=== PATIENT | male | born 1955 | race Caucasian/White ===

== ENCOUNTER 2018-01-18 09:38 | Emergency (ER) | payer SELFPAY ==
[~2018-01-18] VITALS: Ht 165.1 cm; Wt 67.0 kg
[2018-01-18] MEDS ORDERED: KETOROLAC 60MG/2ML VIAL IM ONE (10:15)
[2018-01-18 12:17] VITALS: BP 163/83
== END 2018-01-18 12:19 | disposition home or self-care (01) ==
LOC: ER 09:38
DX: S80.811A Abrasion, right lower leg, initial encounter (principal); V18.4XXA Pedal cycle driver injured in noncollision transport accident in traffic accident, initial encounter; Y93.55 Activity, bike riding; Y92.89 Other specified places as the place of occurrence of the external cause; I10 Essential (primary) hypertension
CPT/HCPCS: 73502; 73552; 73562; 73590; 73630; 96372; 99284; J1885

== ENCOUNTER 2018-09-24 10:00 | Emergency (ER) | payer SELFPAY ==
[~2018-09-24] VITALS: Ht 160 cm; Wt 80.0 kg
[2018-09-24 15:36] LABS: HEMATOCRIT. 37.3 % (42.0-52.0); HEMOGLOBIN. 12.7 g/dL (14.0-18.0); MEAN CORPUSCULAR HEMOGLOBIN 32.2 pg (28.0-32.0); MEAN CORPUSCULAR VOLUME 94.6 fL (80.0-94.0); MEAN PLATELET VOLUME 9.1 fl (7.4-10.4); PLATELET 191 x1000/uL (130-400); RED BLOOD CELL COUNT 3.94 mill/uL (4.7-6.1); RED CELL DISTRIBUTION WIDTH 16.9 % (11.6-14.6)
[2018-09-24 15:37] LABS: CHLORIDE 98 mEq/L (98-107); PROTHROMBIN TIME 10.4 sec (9.6-11.0)
[2018-09-24 16:05] LABS: PLATELET ESTIMATE NORMAL
[2018-09-24] MEDS ORDERED: ACETAMINOPHEN 325MG TABLET PO ONE (21:00)
[2018-09-25 12:47] VITALS: BP 131/76
== END 2018-09-25 12:45 | disposition home or self-care (01) ==
LOC: ER 10:00
DX: S71.102A Unspecified open wound, left thigh, initial encounter (principal); S71.101A Unspecified open wound, right thigh, initial encounter; F10.10 Alcohol abuse, uncomplicated; Y90.9 Presence of alcohol in blood, level not specified; Z59.0 Homelessness; X58.XXXA Exposure to other specified factors, initial encounter; Y93.89 Activity, other specified; Y92.89 Other specified places as the place of occurrence of the external cause
CPT/HCPCS: 36415; 71045; 80053; 83880; 85025; 85610; 93005; 99284; Z7610

== ENCOUNTER 2019-09-13 13:20 | Inpatient (IN) | payer MEDICAID, OTHER ==
[~2019-09-13] VITALS: Ht 162.6 cm; Wt 82.2 kg
[2019-09-13 04:00] VITALS: BP 148/80
[2019-09-13] MEDS ORDERED: SODIUM CHLORIDE 0.9% 1,000 ML IV ONE ×2 (14:35→17:03)
[2019-09-13] MEDS ORDERED: ACETAMINOPHEN 325MG TABLET PO STA (14:35)
[2019-09-13] MEDS ORDERED: VANCOMYCIN 1 G PREMIX 200 ML IV ONE (14:45)
[2019-09-13] MEDS ORDERED: CEFTRIAXONE 1 G PREMIX 50 ML IV ONE (14:45)
[2019-09-13 16:27] LABS: EOSINOPHILS % 0.8 % (0.0-5.0); HEMATOCRIT. 36.2 % (42.0-52.0); HEMOGLOBIN. 12.3 g/dL (14.0-18.0); LYMPHOCYTES % 19.1 % (20.0-50.0); MEAN CORPUSCULAR HEMOGLOBIN 31.5 pg (28.0-32.0); MEAN CORPUSCULAR VOLUME 92.7 fL (80.0-94.0); MEAN PLATELET VOLUME 8.8 fl (7.4-10.4); MONOCYTES % 12.6 % (2.0-8.0); NEUTROPHILS % 66.5 % (40.0-76.0); PLATELET 238 x1000/uL (130-400); RED CELL DISTRIBUTION WIDTH 15.2 % (11.6-14.6)
[2019-09-13 16:31] LABS: CHLORIDE 101 mEq/L (98-107)
[2019-09-13 16:34] LABS: INR 0.9; PROTHROMBIN TIME 10.1 sec (9.6-11.0)
[2019-09-13 16:36] LABS: ETHANOL BLOOD 11 mg/dL
[2019-09-13] MEDS ORDERED: POTASSIUM CHLORIDE 20MEQ TABLET SR PO ONE (16:45)
[2019-09-13] MEDS ORDERED: MORPHINE SULFATE 4 MG/ML CPJ (NOT FOR IM USE) IV STA (17:03)
[2019-09-13] MEDS ORDERED: CLINDAMYCIN 600 MG in DEXTROSE 5% WATER 50 ML IV ONE (17:30)
[2019-09-13 17:46] LABS: *AMPHETAMINES SCREEN URINE NEGATIVE (NEGATIVE); *BARBITURATES SCREEN URINE NEGATIVE (NEGATIVE); *BENZODIAZEPINES SCREEN URINE NEGATIVE (NEGATIVE); *COCAINE SCREEN URINE NEGATIVE (NEGATIVE); CANNABINOID URINE SCREEN NEGATIVE (NEGATIVE); METHADONE URINE SCREEN NEGATIVE (NEGATIVE); OPIATES URINE SCREEN NEGATIVE (NEGATIVE); PHENCYCLIDINE URINE SCREEN NEGATIVE (NEGATIVE)
[2019-09-13] MEDS ORDERED: DOCUSATE SODIUM 100MG CAPSULE PO PRN (18:00)
[2019-09-13] MEDS ORDERED: LORAZEPAM 2MG/ML CPJ IV PRN (18:00)
[2019-09-13] MEDS ORDERED: DEXTROSE 50% WATER 50ML SYRINGE IV PRN (18:00)
[2019-09-13] MEDS ORDERED: HYDRALAZINE 20MG/ML VIAL IV PRN (18:00)
[2019-09-13] MEDS ORDERED: DIPHENHYDRAMINE 50MG/ML VIAL IV PRN (18:00)
[2019-09-13] MEDS ORDERED: IPRATROPIUM/ALBUTEROL 0.5-3(2.5)MG/3ML NEB NEB PRN (18:00)
[2019-09-13] MEDS ORDERED: PIPERACILLIN/TAZ 3.375G PREMIX 50 ML IV SCH (18:00)
[2019-09-13] MEDS ORDERED: NA PHOS,M-B/NA PHOS,DI-BA ENEMA 118ML PR PRN (18:00)
[2019-09-13] MEDS ORDERED: CLINDAMYCIN 600MG PREMIX 50 ML IV SCH (18:00)
[2019-09-13] MEDS ORDERED: MAGNESIUM/ALUMINUM HYDROXIDE/SIMETHICONE 30ML UDC PO PRN (18:00)
[2019-09-13] MEDS ORDERED: GUAIFENESIN 200MG/10ML SUGAR FREE UDC PO PRN (18:00)
[2019-09-13] MEDS ORDERED: ONDANSETRON HCL 4MG/2ML INJ IV PRN (18:00)
[2019-09-13 22:00] VITALS: BP 161/91
[2019-09-13] MEDS: MORPHINE SULFATE 2 MG/ML CPJ (NOT FOR IM USE) IV PRN (22:10)
[2019-09-13] MEDS: CLONIDINE 0.1MG TABLET PO PRN (22:11)
[2019-09-14] VITALS: BP 133/76
[2019-09-14 00:32] LABS: CREATINE KINASE 226 IU/L (39-308)
[2019-09-14 00:33] LABS: CREATINE KINASE MB FRACTION < 1.0 ng/mL (0.5-3.6)
[2019-09-14] MEDS: SODIUM CHLORIDE 0.45% 1,000 ML IV SCH ×2 (00:36→17:01)
[2019-09-14] MEDS: VANCOMYCIN 1 G PREMIX 200 ML IV SCH ×2 (01:09→13:48)
[2019-09-14 04:00] VITALS: BP 161/63
[2019-09-14] MEDS: PIPERACILLIN/TAZOBACTAM 3.375 G in DEXT 5% WATER 100 ML IV SCH ×3 (05:58→23:12)
[2019-09-14] MEDS: SODIUM CHLORIDE 0.9% INJ 3ML FLUSH IVF SCH ×3 (06:00→23:12)
[2019-09-14] MEDS: INSULIN LISPRO 100 UNITS/ML SUBCUT SCH ×4 (06:02→21:00)
[2019-09-14] MEDS: BLOOD SUGAR DIAGNOSTIC STRIP TEST SCH ×4 (06:02→21:01)
[2019-09-14 07:11] LABS: BASOPHILS % 0.4 % (0.0-2.0); EOSINOPHILS % 1.6 % (0.0-5.0); HEMATOCRIT. 30.9 % (42.0-52.0); HEMOGLOBIN. 10.7 g/dL (14.0-18.0); LYMPHOCYTES % 18.6 % (20.0-50.0); MEAN CORPUSCULAR VOLUME 92.8 fL (80.0-94.0); MEAN PLATELET VOLUME 8.6 fl (7.4-10.4); MONOCYTES % 14.4 % (2.0-8.0); PLATELET 203 x1000/uL (130-400); RED BLOOD CELL COUNT 3.33 mill/uL (4.7-6.1); RED CELL DISTRIBUTION WIDTH 15.2 % (11.6-14.6)
[2019-09-14 07:25] LABS: CHLORIDE 104 mEq/L (98-107)
[2019-09-14 07:40] LABS: CREATINE KINASE 166 IU/L (39-308)
[2019-09-14 07:41] LABS: CREATINE KINASE MB FRACTION < 1.0 ng/mL (0.5-3.6)
[2019-09-14 08:00] VITALS: BP 143/67
[2019-09-14] MEDS: ENOXAPARIN 40MG/0.4ML SYR SUBCUT SCH (09:34)
[2019-09-14] MEDS: HYDROCODONE/ACETAMINOPHEN 10/325MG TABLET PO PRN ×2 (10:07→21:06)
[2019-09-14 12:00] VITALS: BP 160/86
[2019-09-14 16:00] VITALS: BP 149/88
[2019-09-14] MEDS: LEVOFLOXACIN 500MG PREMIX 100 ML IV SCH (17:01)
[2019-09-14] MEDS: MORPHINE SULFATE 2 MG/ML CPJ (NOT FOR IM USE) IV PRN (18:09)
[2019-09-14 20:00] VITALS: BP 153/78
[2019-09-15] VITALS: BP 169/88
[2019-09-15] MEDS: VANCOMYCIN 1 G PREMIX 200 ML IV SCH ×2 (01:42→12:56)
[2019-09-15] MEDS: CLONIDINE 0.1MG TABLET PO PRN ×2 (01:52→13:06)
[2019-09-15] MEDS: MORPHINE SULFATE 2 MG/ML CPJ (NOT FOR IM USE) IV PRN ×4 (01:52→21:38)
[2019-09-15 04:00] VITALS: BP 143/90
[2019-09-15] MEDS: BLOOD SUGAR DIAGNOSTIC STRIP TEST SCH ×4 (06:24→20:23)
[2019-09-15] MEDS: INSULIN LISPRO 100 UNITS/ML SUBCUT SCH ×4 (06:24→20:23)
[2019-09-15] MEDS: PIPERACILLIN/TAZOBACTAM 3.375 G in DEXT 5% WATER 100 ML IV SCH ×3 (06:38→23:30)
[2019-09-15] MEDS: SODIUM CHLORIDE 0.9% INJ 3ML FLUSH IVF SCH ×3 (06:39→21:38)
[2019-09-15] MEDS: HYDROCODONE/ACETAMINOPHEN 10/325MG TABLET PO PRN ×3 (06:39→17:32)
[2019-09-15 08:02] VITALS: BP 159/93
[2019-09-15] MEDS: ACETAMINOPHEN 325MG TABLET PO PRN (08:23)
[2019-09-15] MEDS: ENOXAPARIN 40MG/0.4ML SYR SUBCUT SCH (08:24)
[2019-09-15 12:00] VITALS: BP 163/93
[2019-09-15] MEDS: SODIUM CHLORIDE 0.45% 1,000 ML IV SCH (14:42)
[2019-09-15 16:00] VITALS: BP 156/97
[2019-09-15] MEDS: LEVOFLOXACIN 500MG PREMIX 100 ML IV SCH (17:32)
[2019-09-15 20:00] VITALS: BP 139/85
[2019-09-15] MEDS: VANCOMYCIN 750 MG PREMIX 150 ML IV SCH (21:38)
[2019-09-16] VITALS (7 sets, daily range): BP systolic 142–167; BP diastolic 85–98
[2019-09-16] MEDS: HYDROCODONE/ACETAMINOPHEN 10/325MG TABLET PO PRN ×2 (01:40→18:54)
[2019-09-16] MEDS: VANCOMYCIN 750 MG PREMIX 150 ML IV SCH ×3 (04:56→21:07)
[2019-09-16] MEDS: MORPHINE SULFATE 2 MG/ML CPJ (NOT FOR IM USE) IV PRN ×3 (04:57→22:13)
[2019-09-16] MEDS: BLOOD SUGAR DIAGNOSTIC STRIP TEST SCH ×4 (06:25→21:07)
[2019-09-16] MEDS: INSULIN LISPRO 100 UNITS/ML SUBCUT SCH ×4 (06:25→21:00)
[2019-09-16] MEDS: PIPERACILLIN/TAZOBACTAM 3.375 G in DEXT 5% WATER 100 ML IV SCH ×3 (06:34→21:07)
[2019-09-16] MEDS: SODIUM CHLORIDE 0.9% INJ 3ML FLUSH IVF SCH ×3 (06:34→21:08)
[2019-09-16] MEDS: ENOXAPARIN 40MG/0.4ML SYR SUBCUT SCH (08:03)
[2019-09-16] MEDS: ACETAMINOPHEN 325MG TABLET PO PRN (11:26)
[2019-09-16] MEDS: CLOTRIMAZOLE 1% CREAM 30GM TOP SCH (16:24)
[2019-09-16] MEDS: SODIUM CHLORIDE 0.45% 1,000 ML IV SCH (17:47)
[2019-09-16] MEDS: CLONIDINE 0.1MG TABLET PO PRN (21:08)
[2019-09-17] VITALS: BP 171/84
[2019-09-17 04:00] VITALS: BP 160/85
[2019-09-17] MEDS: VANCOMYCIN 750 MG PREMIX 150 ML IV SCH ×3 (04:54→20:37)
[2019-09-17] MEDS: PIPERACILLIN/TAZOBACTAM 3.375 G in DEXT 5% WATER 100 ML IV SCH ×2 (05:00→15:17)
[2019-09-17] MEDS: SODIUM CHLORIDE 0.9% INJ 3ML FLUSH IVF SCH ×2 (05:00→14:00)
[2019-09-17] MEDS: SODIUM CHLORIDE 0.45% 1,000 ML IV SCH (05:53)
[2019-09-17 07:03] LABS: CHLORIDE 105 mEq/L (98-107)
[2019-09-17] MEDS: INSULIN LISPRO 100 UNITS/ML SUBCUT SCH ×4 (07:15→20:37)
[2019-09-17] MEDS: BLOOD SUGAR DIAGNOSTIC STRIP TEST SCH ×4 (07:34→20:37)
[2019-09-17 08:41] VITALS: BP 149/82
[2019-09-17 08:43] VITALS: BP 149/82
[2019-09-17] MEDS: CLOTRIMAZOLE 1% CREAM 30GM TOP SCH (09:03)
[2019-09-17] MEDS: ENOXAPARIN 40MG/0.4ML SYR SUBCUT SCH (09:19)
[2019-09-17 12:00] VITALS: BP 154/91
[2019-09-17] MEDS: MORPHINE SULFATE 2 MG/ML CPJ (NOT FOR IM USE) IV PRN (13:01)
[2019-09-17] MEDS: HYDROCODONE/ACETAMINOPHEN 10/325MG TABLET PO PRN ×2 (15:29→20:38)
[2019-09-17 16:00] VITALS: BP 147/84
[2019-09-18] VITALS: BP 156/85
[2019-09-18] MEDS: PIPERACILLIN/TAZOBACTAM 3.375 G in DEXT 5% WATER 100 ML IV SCH ×4 (00:40→22:43)
[2019-09-18 04:00] VITALS: BP 155/88
[2019-09-18] MEDS: BLOOD SUGAR DIAGNOSTIC STRIP TEST SCH ×4 (06:33→21:00)
[2019-09-18] MEDS: INSULIN LISPRO 100 UNITS/ML SUBCUT SCH ×4 (06:33→21:00)
[2019-09-18] MEDS: VANCOMYCIN 750 MG PREMIX 150 ML IV SCH (06:33)
[2019-09-18] MEDS: ACETAMINOPHEN 325MG TABLET PO PRN (06:34)
[2019-09-18 08:00] VITALS: BP 134/71
[2019-09-18] MEDS: ENOXAPARIN 40MG/0.4ML SYR SUBCUT SCH (08:44)
[2019-09-18] MEDS: CLOTRIMAZOLE 1% CREAM 30GM TOP SCH (08:45)
[2019-09-18] MEDS: HYDROCODONE/ACETAMINOPHEN 10/325MG TABLET PO PRN ×2 (09:28→14:02)
[2019-09-18 12:00] VITALS: BP 178/103
[2019-09-18] MEDS: CLONIDINE 0.1MG TABLET PO PRN (12:15)
[2019-09-18 16:11] VITALS: BP 151/95
[2019-09-18] MEDS ORDERED: VANCOMYCIN 1 G PREMIX 200 ML IV SCH (18:00)
[2019-09-18] MEDS: SODIUM CHLORIDE 0.45% 1,000 ML IV SCH ×2 (19:06→22:44)
[2019-09-18 20:00] VITALS: BP 166/93
[2019-09-18] MEDS: SODIUM CHLORIDE 0.9% INJ 3ML FLUSH IVF SCH (22:43)
[2019-09-19] VITALS: BP 166/98
[2019-09-19 04:00] VITALS: BP 158/89
[2019-09-19] MEDS: SODIUM CHLORIDE 0.9% INJ 3ML FLUSH IVF SCH ×3 (06:28→21:04)
[2019-09-19] MEDS: PIPERACILLIN/TAZOBACTAM 3.375 G in DEXT 5% WATER 100 ML IV SCH (06:31)
[2019-09-19] MEDS: BLOOD SUGAR DIAGNOSTIC STRIP TEST SCH ×4 (06:45→21:07)
[2019-09-19] MEDS: INSULIN LISPRO 100 UNITS/ML SUBCUT SCH ×4 (07:15→21:00)
[2019-09-19 08:00] VITALS: BP 159/96
[2019-09-19] MEDS: ACETAMINOPHEN 325MG TABLET PO PRN ×2 (08:16→21:03)
[2019-09-19] MEDS: CLOTRIMAZOLE 1% CREAM 30GM TOP SCH (09:52)
[2019-09-19] MEDS: ENOXAPARIN 40MG/0.4ML SYR SUBCUT SCH (09:52)
[2019-09-19 12:00] VITALS: BP 154/92
[2019-09-19 16:00] VITALS: BP 161/90
[2019-09-19 20:00] VITALS: BP 169/93
[2019-09-19] MEDS: CLONIDINE 0.1MG TABLET PO PRN (21:03)
[2019-09-20] VITALS: BP 151/77
[2019-09-20] MEDS: ACETAMINOPHEN 325MG TABLET PO PRN ×3 (05:53→20:21)
[2019-09-20] MEDS: BLOOD SUGAR DIAGNOSTIC STRIP TEST SCH ×4 (05:54→20:43)
[2019-09-20] MEDS: CLONIDINE 0.1MG TABLET PO PRN ×2 (05:54→16:56)
[2019-09-20] MEDS: INSULIN LISPRO 100 UNITS/ML SUBCUT SCH ×4 (05:54→20:43)
[2019-09-20 08:00] VITALS: BP 174/98
[2019-09-20] MEDS: CLOTRIMAZOLE 1% CREAM 30GM TOP SCH (09:00)
[2019-09-20] MEDS: ENOXAPARIN 40MG/0.4ML SYR SUBCUT SCH (09:43)
[2019-09-20 12:00] VITALS: BP 158/90
[2019-09-20 16:00] VITALS: BP 171/102
[2019-09-20 20:00] VITALS: BP 130/88
[2019-09-21] VITALS: BP 150/88
[2019-09-21 04:00] VITALS: BP 156/90
[2019-09-21] MEDS: ACETAMINOPHEN 325MG TABLET PO PRN (06:11)
[2019-09-21] MEDS: BLOOD SUGAR DIAGNOSTIC STRIP TEST SCH ×4 (06:25→21:59)
[2019-09-21] MEDS: SODIUM CHLORIDE 0.9% INJ 3ML FLUSH IVF SCH ×2 (06:54→22:40)
[2019-09-21] MEDS: INSULIN LISPRO 100 UNITS/ML SUBCUT SCH ×4 (07:50→21:00)
[2019-09-21 08:00] VITALS: BP 170/97
[2019-09-21] MEDS: ENOXAPARIN 40MG/0.4ML SYR SUBCUT SCH (08:26)
[2019-09-21] MEDS: CLONIDINE 0.1MG TABLET PO PRN ×2 (08:26→14:17)
[2019-09-21] MEDS: CLOTRIMAZOLE 1% CREAM 30GM TOP SCH (08:27)
[2019-09-21] MEDS: HYDROCODONE/ACETAMINOPHEN 5/325MG TABLET PO PRN ×2 (10:57→23:01)
[2019-09-21 12:00] VITALS: BP 151/98
[2019-09-21 16:00] VITALS: BP 144/85
[2019-09-21 20:00] VITALS: BP 140/79
[2019-09-22] VITALS: BP 169/99
[2019-09-22] MEDS: CLONIDINE 0.1MG TABLET PO PRN ×3 (00:07→12:06)
[2019-09-22] MEDS: HYDROCODONE/ACETAMINOPHEN 5/325MG TABLET PO PRN ×3 (03:03→20:29)
[2019-09-22] MEDS: SODIUM CHLORIDE 0.45% 1,000 ML IV SCH ×2 (03:20→22:01)
[2019-09-22 04:00] VITALS: BP 160/95
[2019-09-22] MEDS: SODIUM CHLORIDE 0.9% INJ 3ML FLUSH IVF SCH (06:27)
[2019-09-22] MEDS: INSULIN LISPRO 100 UNITS/ML SUBCUT SCH ×4 (06:38→21:00)
[2019-09-22] MEDS: BLOOD SUGAR DIAGNOSTIC STRIP TEST SCH ×4 (06:38→21:00)
[2019-09-22 08:00] VITALS: BP 158/91
[2019-09-22] MEDS: CLOTRIMAZOLE 1% CREAM 30GM TOP SCH (08:28)
[2019-09-22] MEDS: ENOXAPARIN 40MG/0.4ML SYR SUBCUT SCH (08:28)
[2019-09-22] MEDS: AMLODIPINE 10MG TABLET PO SCH (08:28)
[2019-09-22 12:00] VITALS: BP 159/92
[2019-09-22 15:43] VITALS: BP 140/84
[2019-09-22 20:00] VITALS: BP 156/85
[2019-09-23] VITALS: BP 145/92
[2019-09-23 04:00] VITALS: BP 162/98
[2019-09-23] MEDS: HYDROCODONE/ACETAMINOPHEN 5/325MG TABLET PO PRN ×4 (04:34→21:14)
[2019-09-23] MEDS: BLOOD SUGAR DIAGNOSTIC STRIP TEST SCH ×4 (06:16→21:00)
[2019-09-23] MEDS: INSULIN LISPRO 100 UNITS/ML SUBCUT SCH ×4 (06:20→21:00)
[2019-09-23 06:31] LABS: BASOPHILS % 0.9 % (0.0-2.0); EOSINOPHILS % 1.5 % (0.0-5.0); HEMATOCRIT. 35.1 % (42.0-52.0); HEMOGLOBIN. 12.1 g/dL (14.0-18.0); LYMPHOCYTES % 17.4 % (20.0-50.0); MEAN CORPUSCULAR HEMOGLOBIN 31.7 pg (28.0-32.0); MEAN PLATELET VOLUME 8.3 fl (7.4-10.4); MONOCYTES % 9.8 % (2.0-8.0); NEUTROPHILS % 70.4 % (40.0-76.0); PLATELET 386 x1000/uL (130-400); RED BLOOD CELL COUNT 3.82 mill/uL (4.7-6.1); RED CELL DISTRIBUTION WIDTH 14.9 % (11.6-14.6)
[2019-09-23 08:00] VITALS: BP 175/105
[2019-09-23] MEDS: AMLODIPINE 10MG TABLET PO SCH (08:29)
[2019-09-23] MEDS: ENOXAPARIN 40MG/0.4ML SYR SUBCUT SCH (08:30)
[2019-09-23] MEDS: CLOTRIMAZOLE 1% CREAM 30GM TOP SCH (11:47)
[2019-09-23 12:00] VITALS: BP 145/84
[2019-09-23] MEDS: CLONIDINE 0.1MG TABLET PO PRN ×2 (12:27→21:14)
[2019-09-23] MEDS: SODIUM CHLORIDE 0.9% INJ 3ML FLUSH IVF SCH (13:47)
[2019-09-23 16:00] VITALS: BP 142/85
[2019-09-23 20:00] VITALS: BP 172/95
[2019-09-23] MEDS: SODIUM CHLORIDE 0.45% 1,000 ML IV SCH (21:23)
[2019-09-24] VITALS: BP 175/98
[2019-09-24 00:10] VITALS: BP 140/83
[2019-09-24] MEDS: BLOOD SUGAR DIAGNOSTIC STRIP TEST SCH ×4 (06:11→21:10)
[2019-09-24] MEDS: INSULIN LISPRO 100 UNITS/ML SUBCUT SCH ×4 (06:11→21:00)
[2019-09-24 08:00] VITALS: BP 154/95
[2019-09-24] MEDS: CLOTRIMAZOLE 1% CREAM 30GM TOP SCH (08:40)
[2019-09-24] MEDS: AMLODIPINE 10MG TABLET PO SCH (08:40)
[2019-09-24] MEDS: ENOXAPARIN 40MG/0.4ML SYR SUBCUT SCH (08:40)
[2019-09-24 12:00] VITALS: BP 149/91
[2019-09-24] MEDS: SODIUM CHLORIDE 0.9% INJ 3ML FLUSH IVF SCH ×2 (13:04→22:30)
[2019-09-24] MEDS: HYDROCODONE/ACETAMINOPHEN 5/325MG TABLET PO PRN ×2 (13:06→20:30)
[2019-09-24] MEDS: SODIUM CHLORIDE 0.45% 1,000 ML IV SCH (18:22)
[2019-09-24 20:00] VITALS: BP 164/96
[2019-09-25] VITALS: BP 153/86
[2019-09-25] MEDS: HYDROCODONE/ACETAMINOPHEN 5/325MG TABLET PO PRN ×2 (02:48→09:05)
[2019-09-25 04:00] VITALS: BP 152/86
[2019-09-25] MEDS: SODIUM CHLORIDE 0.9% INJ 3ML FLUSH IVF SCH ×2 (06:00→13:57)
[2019-09-25] MEDS: INSULIN LISPRO 100 UNITS/ML SUBCUT SCH ×3 (07:50→16:55)
[2019-09-25 08:00] VITALS: BP 171/97
[2019-09-25] MEDS: BLOOD SUGAR DIAGNOSTIC STRIP TEST SCH ×3 (08:08→16:55)
[2019-09-25] MEDS: AMLODIPINE 10MG TABLET PO SCH (08:17)
[2019-09-25] MEDS: CLOTRIMAZOLE 1% CREAM 30GM TOP SCH (08:17)
[2019-09-25] MEDS: ENOXAPARIN 40MG/0.4ML SYR SUBCUT SCH (08:19)
[2019-09-25 12:00] VITALS: BP 146/93
[2019-09-25] MEDS: SODIUM CHLORIDE 0.45% 1,000 ML IV SCH (14:30)
[2019-09-25 16:00] VITALS: BP 151/98
[2019-09-25 17:56] VITALS: BP 151/88
== END 2019-09-25 18:15 | disposition home or self-care (01) | DRG 383 ==
LOC: ER 13:33 → EDBEDREQ 17:34 → EDBEDREQTM 17:34 → ENRESERV 20:26 → 5WST 21:34 → 6EST 09-20 05:46
PROVIDERS: ADMIT Internal Medicine; ATTEND Emergency Medicine
DX: L03.116 Cellulitis of left lower limb (principal); E87.2 Acidosis; R78.81 Bacteremia; E46 Unspecified protein-calorie malnutrition; E66.01 Morbid (severe) obesity due to excess calories; B35.3 Tinea pedis; E87.6 Hypokalemia; D64.9 Anemia, unspecified; I10 Essential (primary) hypertension; R73.03 Prediabetes; R74.0 Nonspecific elevation of levels of transaminase and lactic acid dehydrogenase [LDH]; Z59.0 Homelessness; Z68.31 Body mass index [BMI] 31.0-31.9, adult; Z56.0 Unemployment, unspecified; Z91.19 Patient's noncompliance with other medical treatment and regimen; S80.222A Blister (nonthermal), left knee, initial encounter; S80.221A Blister (nonthermal), right knee, initial encounter; X58.XXXA Exposure to other specified factors, initial encounter; Y93.89 Activity, other specified; Y92.89 Other specified places as the place of occurrence of the external cause; Y99.8 Other external cause status; Z71.3 Dietary counseling and surveillance
CPT/HCPCS: 36415; 71045; 80048; 80053; 80202; 80305; 80320; 82550; 82553; 82962; 83036; 83605; 83880; 84484; 85025; 87077; 87186; 93005; 93970; 97116; 97162; 97166; 97530; 97535; 99285; J0360; J0696; J1650; J1956; J2270; J2543; J3370; J3490; J7030; J7060; G0480